=== PATIENT | male | born 1985 | race Caucasian/White ===

== ENCOUNTER 2018-12-30 11:27 | Emergency (ER) | payer MEDICAID ==
[~2018-12-30] VITALS: Ht 185.4 cm; Wt 102.3 kg
[2018-12-30 11:29] VITALS: BP 111/75
[2018-12-30] MEDS ORDERED: DOXYCYCLINE 100MG CAPSULE PO STA (12:26)
[2018-12-30] MEDS ORDERED: DOXY100C43 PO (12:28)
[2018-12-30] MEDS ORDERED: CEPH250T PO (12:28)
[2018-12-30] MEDS ORDERED: ondansetron 4mg rapidly disintigrating tab PO ONE (12:30)
[2018-12-30] MEDS ORDERED: cephalexin 250mg capsule PO ONE (12:30)
== END 2018-12-30 12:47 | disposition home or self-care (01) ==
LOC: ER 11:28
DX: L03.115 Cellulitis of right lower limb (principal)
CPT/HCPCS: 99284